=== PATIENT | female | born 1985 | race Caucasian/White ===

== ENCOUNTER 2017-10-17 13:46 | Inpatient (IN) | payer OTHER ==
[~2017-10-17] VITALS: Ht 167.6 cm; Wt 72.6 kg
[2017-10-17 14:19] LABS: ABSOLUTE BASOPHIL COUNT 0 /CUMM (0.0-0.2); ABSOLUTE EOSINOPHIL COUNT 0 /CUMM (0.0-0.7); ABSOLUTE GRANULOCYTE CT 9.3 /CUMM (1.4-6.5); ABSOLUTE LYMPH COUNT 1.8 /CUMM (1.2-3.4); ABSOLUTE MONOCYTE COUNT 0.5 /CUMM (0.10-0.60); BASOPHIL % 0.4 % (0.0-2.0); EOSINOPHIL % 0.4 % (0-5); GRANULOCYTE % 79.5 % (42.2-75.2); HEMATOCRIT 37.3 % (37-47); MEAN CORPUSCULAR HGB 29.3 PG (27.0-31.0); MEAN CORPUSCULAR VOLUME 86.1 FL (81.0-99.0); MEAN PLATELET VOLUME 7.1 FL (7.4-10.4); PLATELET COUNT 331 /CUMM (130-400); RBC DISTRIBUTION WIDTH 12.4 % (11.5-14.5); RED BLOOD CELL CT 4.34 /CUMM (4.20-5.40); WHITE BLOOD CELL COUNT 11.7 /CUMM (4.8-10.8)
--- NOTE | 2017-10-17 14:57 | ED GI/GU/ABDOMINAL COMPLAINT ---
History of Present Illness General Chief Complaint: Uterine Contractions(Pregnacy) Stated Complaint: SIB DR CHEATHAM FOR STAT BLOOD WORK (5 WKS PREG) Source: patient Exam Limitations: no limitations Vital Signs & Intake/Output Vital Signs & Intake/Output Vital Signs Date Time Temp Pulse Resp B/P B/P Pulse O2 O2 Flow FiO2 Mean Ox Delivery Rate 10/17 2350 98.4 81 18 113/60 97 Room Air 10/17 2211 98.7 96 20 121/69 98 Room Air 10/17 1956 98.4 97 20 110/76 98 Room Air 10/17 1645 78 18 109/66 100 Room Air Room Air 10/17 1644 78 109/66 10/17 1640 100 Room Air Room Air 10/17 1402 98.2 99 18 127/85 98 Room Air ED Intake and Output 10/18 0000 10/17 1200 Intake Total Output Total Balance Patient 160 lb Weight Weight Estimated Measurement Method Allergies Coded Allergies: shellfish derived (UNKNOWN 10/17/17) Reconcile Medications Pnv#67/Iron Ps/FA Cmb#1/Dha (Vitafol Ultra Softgel) 29 MG IRON-1 MG-200 MG CAPSULE 1 CAP PO DAILY (Reported) Triage Note: PT TO ER FOR LAB WORK PER OBGYN DR. MARIE (COVERING FOR RYNE HERNÁNDEZ). PATIENT IS APPROX 5 WEEKS D/D 06/17/2018. PT HAS HAD BROWN COLORED VAGINAL D/C SINCE 10/27. PT HAD 2 ULTRASOUNDS TODAY, UNABLE TO LOCATE FETUS. NEEDING LABS SPECIALLY FOR SERUM HCG. RLQ PAIN 2/10 Triage Nurses Notes Reviewed? yes ? y Is pt currently ? No Onset: Gradual Duration: week(s): (1) Timing: recent history Location: right lower quadrant Radiation: no radiation No Modifying Factors: none Associated Symptoms: abdominal pain, SPOTTING HPI: 32 year old femal , LMP early September who presents from her OB office for chief complaint of spotting since the 26 of september as well as spotting. She had an ultrasound in the office which did not identify an IUP as well as a hcg quant level of 1400 on friday. On the she had a positive blood test for and today she went back but unable to find IUP on ultrasound. She reports spotting as of yesterday, reports abdominal pain/cramping with exertion right sided. (Emma Delcid MD) Past History Travel History Traveled to [place] past 21 day No Medical History Any Pertinent Medical History? none Surgical History Surgical History: none Psychosocial History What is your primary language Belarusian Tobacco Use: Never used Family History Hx Contributory? No (Emma Delcid MD) Review of Systems Review of Systems Constitutional: Denies: chills, fever. EENTM: Reports: no symptoms. Respiratory: Denies: cough, short of breath. Cardiovascular: Denies: chest pain, palpitations. GI: Reports: abdominal pain. Genitourinary: Reports: see HPI (SPOTTING). Musculoskeletal: Reports: no symptoms. Skin: Reports: no symptoms. Neurological/Psychological: Reports: no symptoms. Hematologic/Endocrine: Denies: bruising, bleeding, polyuria, polydipsia. Immunologic/Allergic: Denies: splenectomy. All Other Systems: Reviewed and Negative (Emma Delcid MD) Physical Exam Physical Exam General Appearance: well developed/nourished, alert, awake Head: atraumatic, normal appearance Eyes: Bilateral: normal appearance, PERRL, EOMI. Ears, Nose, Throat, Mouth: hearing grossly normal, moist mucous membrane Neck: normal inspection, supple, full range of motion Respiratory: normal breath sounds, chest non-tender, no respiratory distress Cardiovascular: regular rate/rhythm, normal peripheral pulses Peripheral Pulses: 2+ radial (R), 2+ radial (L) Gastrointestinal: normal bowel sounds, soft, tenderness (RLQ PAIN) Back: normal inspection, normal range of motion Extremities: normal range of motion Neurologic/Psych: no motor/sensory deficits, awake, alert, oriented x 3 Skin: intact, normal color, warm/dry Core Measures ACS in differential dx? No Sepsis Present: No Sepsis Focused Exam Completed? No (Emma Delcid MD) Progress Differential Diagnosis: ectopic Plan of Care: Orders Procedure Date/time Status Nothing by Mouth 10/18 B Active CBC WITHOUT DIFFERENTIAL 10/18 599 Active CBC WITHOUT DIFFERENTIAL 10/17 2208 Complete Saline Lock 10/17 2202 Active Misc Message 10/17 2202 Active ED Holding Orders 10/17 2202 Active Admit to inpatient 10/17 2202 Active Vital Signs 10/17 2202 Active Code Status 10/17 2202 Active TYPE & SCREEN (NOT X-MATCH) 10/17 1411 Complete URINALYSIS 10/17 1349 Complete HUMAN BETA HCG TITRE 10/17 134 Complete COMPREHENSIVE METABOLIC PANEL 10/17 134 Complete CBC WITHOUT DIFFERENTIAL 10/17 1348 Complete Laboratory Tests 10/17/17 2225: CBC w Diff NO MAN DIFF REQ, RBC 4.16 L, MCV 85.9, MCH 29.7, RDW 12.4, MPV 6.9 L, Gran % 73.3, Lymphocytes % 20.0 L, Monocytes % 6.2, Eosinophils % 0.2, Basophils % 0.3, Absolute Granulocytes 9.2 H, Absolute Lymphocytes 2.5, Absolute Monocytes 0.8 H, Absolute Eosinophils 0, Absolute Basophils 0, PUBS MCHC 34.6 10/17/17 1530: Urine Color YEL, Urine Clarity CLEAR, Urine pH 6.0, Ur Specific [place] <= 1.005 , Urine Protein NEG, Urine Ketones NEG, Urine Nitrite NEG, Urine Bilirubin NEG, Urine Urobilinogen 0.2, Ur Leukocyte Esterase SMALL H, Ur Microscopic SEDIMENT EXAMINED, Urine RBC RARE, Urine WBC RARE, Ur Epithelial Cells MOD H, Urine Bacteria MOD H, Urine Hemoglobin SMALL H, Urine Glucose NEG 10/17/17 1411: Anion Gap 9, Estimated GFR > 60, BUN/Creatinine Ratio 16.7, Glucose 88, Calcium 9.6, Total Bilirubin 0.6, AST 26, ALT 37, Alkaline Phosphatase 53, Total Protein 7.5, Albumin 4.7, Globulin 2.8, Albumin/Globulin Ratio 1.7, Beta HCG, Quant 2489.0, CBC w Diff NO MAN DIFF REQ, RBC 4.34, MCV 86.1, MCH 29.3, RDW 12.4, MPV 7.1 L, Gran % 79.5 H, Lymphocytes % 15.2 L, Monocytes % 4.5, Eosinophils % 0.4, Basophils % 0.4, Absolute Granulocytes 9.3 H, Absolute Lymphocytes 1.8, Absolute Monocytes 0.5, Absolute Eosinophils 0, Absolute Basophils 0, PUBS MCHC 34.0 4:54PM D/W DR PARHAM, WILL COME TO ED TO SEE IMAGES AND EXAMINE PATIENT. SHE REMAINS NPO. 6:[address] REGAN [place], IN DELIVERY. PATIENT AGREES TO METHOTREXATE, ADMISSION. Diagnostic Imaging: Viewed by Me: Ultrasound. Discussed w/RAD: Ultrasound. Radiology Impression: PATIENT: JIA SOLITARIO PRESENT AGE: 32 PATIENT ACCOUNT NO: [id number] : 85 LOCATION: [facility] ORDERING PHYSICIAN: Emma Delcid MD SERVICE DATE: 10/17/17 EXAM TYPE: US - US TRANSVAG EXAMINATION: ULTRASOUND CLINICAL INFORMATION: Right lower quadrant pain. Beta-hCG of 2489. No IUP visualized. Presumptive diagnosis of question ectopic . COMPARISON: Pelvic ultrasound dated 07/19/2010. TECHNIQUE: Transabdominal and transvaginal pelvic ultrasound. A transvaginal study was performed in addition to the transabdominal study which did not yield an adequate examination of the uterus and ovaries due to superimposed distended gas-filled loops of bowel. FINDINGS: By the patient's last menstrual period of 09/10/2017, a 5 week 2 day gestation is expected with an estimated date of delivery of 06/17/2018. Uterus: The uterus is anteverted and normal in size and appearance, measuring 8.0 x 4.0 x 5.6 cm. The endometrial stripe thickness is normal, measuring 0.8 cm in thickness. No focal myometrial mass is seen. No gestational sac or endometrial free fluid is seen. The cervical length is normal measuring 2.3 cm. Ovaries: In the right adnexa, a large complex cystic mass is seen, presumably representing the right ovary, measuring 7.7 x 4.2 x 8.4 cm. There is a mildly thick-walled complex cyst with low-level internal echoes and fibrinous bands seen in the right ovary, measuring 5.8 x 4.8 x 5.2 cm. An adjacent smaller complex cystic mass is noted, measuring 3.7 x 2.7 x 2.9 cm. There is a moderate amount of free fluid seen in the right adnexa with low-level internal echoes, suggesting hemorrhagic free fluid. With color Doppler imaging, no "ring of fire" is seen. No definite pole is identified within the cystic masses. The left ovary is normal with small follicles seen, measuring 3.9 x 2.0 x 2.2 cm (9.4 mL volume). With color Doppler imaging, arterial and venous flow to both ovaries is seen. IMPRESSION: 1. In the clinical setting provided, the above findings are highly suspicious for a ruptured ectopic in the right adnexa. Close clinical correlation is requested with further management as clinically appropriate. Serial ultrasound and serial beta hCG assessments may be helpful in further assessing these findings. 2. Uterus and left ovary normal. Findings discussed with Dr. Emma Delcid at the time of the exam 10/17/2017, approximately 4:15 PM. DICTATED BY: Trena Roa MD DATE/TIME DICTATED:10/17 COMPUTER APPLICATIONS DEVELOPER:JENNIFER DATE/TIME TRANSCRIBED:10/17/171633 CONFIDENTIAL, DO NOT COPY WITHOUT APPROPRIATE AUTHORIZATION. <Electronically signed in Other Vendor System> SIGNED BY: Trena Roa MD 10/17/171653 Initial ED EKG: none Hand-Off Endorsed To: Rodolfo Dwyer MD Endorsed Time: 1899 Pending: consult (DR PARHAM) (Emma Delcid MD) Departure Departure Disposition: STILL A PATIENT Condition: Stable Clinical Impression Primary Impression: Ectopic Referrals: Ryne Borjas (PCP/Family) Departure Forms: Customer Survey General Discharge Information (Emma Delcid MD) Admission Note Spoke With: Bessie Parham MD Documentation of Exam: Documentation of any treatments & extenuating circumstances including Concerns Regarding Discharge (functional status, medication knowledge or non-compliance, living conditions, etc.) that warrant an admission rather than observation: pt with ectopic ... pt to be admitted for close monitoring, given methotrexate. pt declines surgery (Rodolfo Dwyer MD)
[2017-10-17] MEDS ORDERED: VITAFOL ULTRA1 EACH PO (16:42)
--- NOTE | 2017-10-17 16:54 | ULTRASOUND REPORT ---
EXAMINATION: ULTRASOUND CLINICAL INFORMATION: Right lower quadrant pain. Beta-hCG of 2489. No IUP visualized. Presumptive diagnosis of question ectopic . COMPARISON: Pelvic ultrasound dated 07/19/2010. TECHNIQUE: Transabdominal and transvaginal pelvic ultrasound. A transvaginal study was performed in addition to the transabdominal study which did not yield an adequate examination of the uterus and ovaries due to superimposed distended gas-filled loops of bowel. FINDINGS: By the patient's last menstrual period of 09/10/2017, a 5 week 2 day gestation is expected with an estimated date of delivery of 06/17/2018. Uterus: The uterus is anteverted and normal in size and appearance, measuring 8.0 x 4.0 x 5.6 cm. The endometrial stripe thickness is normal, measuring 0.8 cm in thickness. No focal myometrial mass is seen. No gestational sac or endometrial free fluid is seen. The cervical length is normal measuring 2.3 cm. Ovaries: In the right adnexa, a large complex cystic mass is seen, presumably representing the right ovary, measuring 7.7 x 4.2 x 8.4 cm. There is a mildly thick-walled complex cyst with low-level internal echoes and fibrinous bands seen in the right ovary, measuring 5.8 x 4.8 x 5.2 cm. An adjacent smaller complex cystic mass is noted, measuring 3.7 x 2.7 x 2.9 cm. There is a moderate amount of free fluid seen in the right adnexa with low-level internal echoes, suggesting hemorrhagic free fluid. With color Doppler imaging, no "ring of fire" is seen. No definite pole is identified within the cystic masses. The left ovary is normal with small follicles seen, measuring 3.9 x 2.0 x 2.2 cm (9.4 mL volume). With color Doppler imaging, arterial and venous flow to both ovaries is seen. IMPRESSION: 1. In the clinical setting provided, the above findings are highly suspicious for a ruptured ectopic in the right adnexa. Close clinical correlation is requested with further management as clinically appropriate. Serial ultrasound and serial beta hCG assessments may be helpful in further assessing these findings. 2. Uterus and left ovary normal. Findings discussed with Dr. Emma Delcid at the time of the exam 10/17/2017, approximately 4:15 PM.
--- NOTE | 2017-10-17 22:25 | PN- OBGYN ---
See Addendum Surgical Brief Attending Note Brief Attending Note: Pt seen and examined by me. 32yo P0 @ 6 wks by lmp, TTC x 1 yr, present with abnormally rising BHCG 10/10 1111 --> 10/14 1936 --> 10/17 2489. Sono on 10/10 showed no intrauterine GS, Rt ov 5.5 x 3.9 cm w/ 2 simple cysts 3.3 and 2.2 cm and moderate free fluid, norml left ovary. Sono 10/17 showed 6.2 cm hemorrhagic cyst and 2.2cm simple cyst in right adnexa, no IUP, modeate free fluid. Pt see in office with spotting and mild cramping and sent to [place] ED. Repeat sono showed in right adnexa complex cyst 5.8cm and adjacent complex cyst 3.7cm with complex moderate free fluid. Pt denies TORRES / dizziness / CP / SOB. Not orthostatic. POB - vtop x 2 PGyn / PMH - non contributory PSH - retinal detachment surgery MEds - none All shellfish SH - no EtOh / smoking / drugs afeb, v/ss, pulse 80s, bp 110/76 NAD Abd soft nt nd Shannon no vb Ext nt no ed hgb 11.7 / 36 AB pos A/P Extensive d/w pt and family regarding above findings and high suspicion for ruptured tubal . Recommendation for surgical management made via L/S given pt HD stable. Pt declines surgery at this time and prefers MTX. Pt advised given potential size of mass and possibilty of current rupture MTX is not advisable. Pt continues to refuse surgical intervention at this time. Will admit patient for MTX, serial cbc and exams. Pt to maintain NPO. Pt agrees to reconsider surgery if clinically worsens / shows signs / symptoms of active bleeding.
[2017-10-17 22:33] LABS: ABSOLUTE BASOPHIL COUNT 0 /CUMM (0.0-0.2); ABSOLUTE EOSINOPHIL COUNT 0 /CUMM (0.0-0.7); ABSOLUTE GRANULOCYTE CT 9.2 /CUMM (1.4-6.5); ABSOLUTE LYMPH COUNT 2.5 /CUMM (1.2-3.4); ABSOLUTE MONOCYTE COUNT 0.8 /CUMM (0.10-0.60); BASOPHIL % 0.3 % (0.0-2.0); EOSINOPHIL % 0.2 % (0-5); GRANULOCYTE % 73.3 % (42.2-75.2); HEMATOCRIT 35.8 % (37-47); MEAN CORPUSCULAR HGB 29.7 PG (27.0-31.0); MEAN CORPUSCULAR HGB CONC 34.6 G/DL (33.0-37.0); MEAN CORPUSCULAR VOLUME 85.9 FL (81.0-99.0); MEAN PLATELET VOLUME 6.9 FL (7.4-10.4); PLATELET COUNT 321 /CUMM (130-400); RBC DISTRIBUTION WIDTH 12.4 % (11.5-14.5); RED BLOOD CELL CT 4.16 /CUMM (4.20-5.40); WHITE BLOOD CELL COUNT 12.5 /CUMM (4.8-10.8)
[2017-10-18 06:12] LABS: ABSOLUTE BASOPHIL COUNT 0 /CUMM (0.0-0.2); ABSOLUTE EOSINOPHIL COUNT 0 /CUMM (0.0-0.7); ABSOLUTE GRANULOCYTE CT 8.2 /CUMM (1.4-6.5); ABSOLUTE LYMPH COUNT 1.7 /CUMM (1.2-3.4); ABSOLUTE MONOCYTE COUNT 0.7 /CUMM (0.10-0.60); BASOPHIL % 0.3 % (0.0-2.0); EOSINOPHIL % 0.4 % (0-5); HEMATOCRIT 33.5 % (37-47); MEAN CORPUSCULAR HGB 29.4 PG (27.0-31.0); MEAN CORPUSCULAR VOLUME 86.5 FL (81.0-99.0); MEAN PLATELET VOLUME 7.2 FL (7.4-10.4); PLATELET COUNT 282 /CUMM (130-400); RBC DISTRIBUTION WIDTH 12.4 % (11.5-14.5); RED BLOOD CELL CT 3.87 /CUMM (4.20-5.40); WHITE BLOOD CELL COUNT 10.6 /CUMM (4.8-10.8)
[2017-10-18 07:18] VITALS: BP 106/62
--- NOTE | 2017-10-18 07:34 | PN- OBGYN ---
Surgical Brief Attending Note Brief Attending Note: Pt feeling no pain, but has "gas bubbles". TORRES overnight relieved after received 1 L IV fluids. No dizziness / CP / SOB. No N/V. No palpitations. afeb 98.2, 75, (70 - 90s), 106/62 nad abd soft nt nd hgb 12.7 --> 12.4--> 11.4 A/P P0 with likely right ectopic , possibly ruptured. Pt HD stable but hgb decreased this morning, possibly dilutional. Recommendation once again made for surgical treatment given possibility of internal bleeding causing decreased hgb. Pt once again refuses stating she feels well and bleeding may have stopped. Will obtain rpt cbc, rpt sono, maintain npo, observation.
[2017-10-18 12:22] LABS: ABSOLUTE BASOPHIL COUNT 0 /CUMM (0.0-0.2); ABSOLUTE EOSINOPHIL COUNT 0 /CUMM (0.0-0.7); ABSOLUTE GRANULOCYTE CT 8.5 /CUMM (1.4-6.5); ABSOLUTE LYMPH COUNT 1.8 /CUMM (1.2-3.4); ABSOLUTE MONOCYTE COUNT 0.4 /CUMM (0.10-0.60); BASOPHIL % 0.3 % (0.0-2.0); EOSINOPHIL % 0.1 % (0-5); HEMATOCRIT 33.8 % (37-47); MEAN CORPUSCULAR HGB 29.4 PG (27.0-31.0); MEAN CORPUSCULAR HGB CONC 34.2 G/DL (33.0-37.0); MEAN CORPUSCULAR VOLUME 86.1 FL (81.0-99.0); MEAN PLATELET VOLUME 7.1 FL (7.4-10.4); PLATELET COUNT 294 /CUMM (130-400); RBC DISTRIBUTION WIDTH 12.6 % (11.5-14.5); RED BLOOD CELL CT 3.93 /CUMM (4.20-5.40); WHITE BLOOD CELL COUNT 10.7 /CUMM (4.8-10.8)
--- NOTE | 2017-10-18 14:05 | PN- OBGYN ---
Surgical Brief Attending Note Brief Attending Note: Pt had repeat u/s this PM with findings unchanged serial HCT is stable at 33.5- 33.8 after 7 hours. Pt remains essentially asymptomatic and her vital signs are stable. Recieved one dose methotrexate yesterday will return friday for a repeat BHCG and then again on Friday will go to the nearest ER if she experiencen any sudden or gradual increase in abdominal/pelvic pain, lightheadedness, dizziness or fainting. Will avoid any intoxicants her mother will stay with her at home. Pt understands risk of rupture including , infertility and disability and prefers to continue to take the non-surgical approach.
--- NOTE | 2017-10-18 14:17 | ULTRASOUND REPORT ---
EXAMINATION: ULTRASOUND CLINICAL INFORMATION: Abnormal rising beta hCG. No intrauterine . Adnexal mass. Free fluid. Patient refusing surgery. Presumptive diagnosis of ectopic . COMPARISON: ultrasound dated 10/17/2017. TECHNIQUE: Transabdominal and transvaginal pelvic ultrasound. A transvaginal study was performed in addition to the transabdominal study which did not yield an adequate examination of the uterus and ovaries due to superimposed distended gas-filled loops of bowel. FINDINGS: Based on the patient's last menstrual period of 09/10/2017, a 5 week 3 day gestation is expected with an estimated date of delivery of 06/17/2018. Uterus: The uterus is anteverted and normal in size and appearance, measuring 8.6 x 4.1 x 3.5 cm. The endometrial stripe thickness is normal, measuring 0.9 cm in thickness. No focal myometrial mass is seen. The cervical length is normal measuring 3.0 cm. Ovaries: The ovaries bilaterally are visualized and appear unchanged from yesterday. The left ovary is normal, demonstrating several small follicles, measuring 3.5 x 1.4 x 2.0 cm (5.2 mL volume). Normal arterial flow to the left ovary is seen. The right ovary is enlarged and replaced by 2 large cysts. Right ovary measures 8.2 x 6.0 x 6.2 cm (157.1 mL volume). Largest cyst measures 6.1 x 5.5 x 6.1 cm and demonstrates internal echogenic debris with angular margins, likely representing an involuting corpus luteum cyst. An adjacent smaller simple cyst is seen, measuring 2.5 x 2.0 x 3.8 cm. These findings are very similar to yesterday's exam. With color Doppler imaging, normal arterial flow to the right ovary is seen. No abnormal ring of fire is noted. Other: Moderate volume of mildly complex right adnexal fluid is seen with low-level internal echoes, similar to previous exam. IMPRESSION: 1. No intrauterine is identified. Even though no definite tissues are identified in the adnexa, in the setting of a positive beta hCG, moderate volume complicated fluid in the pelvis and lack of intrauterine , findings are highly suspicious for a ruptured ectopic . 2. Complex cystic mass is seen in the right adnexa, unchanged from previous exam. This might represent an involuting corpus luteum cyst or a hemorrhagic cyst and is similar to yesterday's exam. 3. Left ovary normal. Findings discussed with Dr. Kelly at the time of the exam.
[2017-10-18 15:49] VITALS: BP 118/58
== END 2017-10-18 15:35 | DRG 777 ==
LOC: ERH 13:46 → ERHI 22:03 → ENRESERV 10-18 06:04 → 2NB 10-18 06:39 → ENPENDDIS 10-18 13:54 → 2NB 10-18 15:35
PROVIDERS: Obstetrics & Gynecology; Physician Assistant Medical
DX: O00.101 Right tubal pregnancy without intrauterine pregnancy (principal)
CPT/HCPCS: ERO; 36415; 76817; 81001; 96372